=== PATIENT | female | born 1955 | race Caucasian/White ===

== ENCOUNTER 2019-04-09 12:23 | Outpatient (CLI) | payer OTHER | END 2019-04-09 23:59 | disposition home or self-care (01) | LOC: CFH 12:23 | PROVIDERS: ATTEND Family Medicine | DX: N63.11 Unspecified lump in the right breast, upper outer quadrant (principal); R92.2 Inconclusive mammogram | CPT/HCPCS: 76642; 77066; G0279; 77063 ==